=== PATIENT | female | born 1990 ===

== ENCOUNTER 2017-10-06 16:16 | Emergency (ER) | payer OTHER ==
[~2017-10-06] VITALS: Ht 162.6 cm; Wt 48.5 kg
[2017-10-06 16:51] LABS: ABSOLUTE BASOPHIL COUNT 0 /CUMM (0.0-0.2); ABSOLUTE EOSINOPHIL COUNT 0.1 /CUMM (0.0-0.7); ABSOLUTE GRANULOCYTE CT 12.3 /CUMM (1.4-6.5); ABSOLUTE LYMPH COUNT 2.1 /CUMM (1.2-3.4); ABSOLUTE MONOCYTE COUNT 0.8 /CUMM (0.10-0.60); BASOPHIL % 0.3 % (0.0-2.0); EOSINOPHIL % 0.6 % (0-5); GRANULOCYTE % 80.1 % (42.2-75.2); HEMATOCRIT 41.2 % (37-47); MEAN CORPUSCULAR HGB 31.5 PG (27.0-31.0); MEAN CORPUSCULAR HGB CONC 33.4 G/DL (33.0-37.0); MEAN CORPUSCULAR VOLUME 94.1 FL (81.0-99.0); PLATELET COUNT 272 /CUMM (130-400); RBC DISTRIBUTION WIDTH 12.4 % (11.5-14.5); RED BLOOD CELL CT 4.38 /CUMM (4.20-5.40); WHITE BLOOD CELL COUNT 15.4 /CUMM (4.8-10.8)
--- NOTE | 2017-10-06 18:12 | ED GENERAL ADULT ---
History of Present Illness General Chief Complaint: Nausea, Vomiting, Diarrhea Stated Complaint: SIB OBGYN 8 WEEKS PREG, HYPEREMISIS Source: patient Exam Limitations: no limitations Vital Signs & Intake/Output Vital Signs & Intake/Output Vital Signs Date Time Temp Pulse Resp B/P B/P Pulse O2 O2 Flow FiO2 Mean Ox Delivery Rate 10/06 2117 98.3 66 16 100/50 100 Room Air 10/06 1844 98.6 68 18 107/59 100 Room Air 10/06 1840 Room Air 10/06 1625 97.8 69 16 116/73 99 Room Air ED Intake and Output 10/07 0000 10/06 1200 Intake Total 2240 Output Total Balance 2240 Intake, IV 2000 Intake, Oral 240 Patient 107 lb Weight Weight Reported by Patient Measurement Method Allergies Coded Allergies: loracarbef (From LORABID) (HIVES 10/06/17) Triage Note: PT STATES SENT IN BY [facility] FOR HYPEREMISIS. PT IS 8 WEEKS Triage Nurses Notes Reviewed? yes Onset: Abrupt Duration: day(s): Timing: recent history : Yes Patient currently breastfeeds: No HPI: 10/06/17 7 PM 27-year-old female presents to the emergency department for multiple episodes of vomiting. She has a history of related hyper emesis. She is currently 7 weeks . She is a 2 para 1. She admits to scant vaginal spotting. No significant abdominal pain. IV fluids have been given and IV Zofran was given. The patient was signed out to Dr. Walden at 7 PM. She is pending ultrasound and reevaluation. (Dell Gamez DO) Reconcile Medications Ondansetron (Zofran Odt) 4 MG TAB.RAPDIS 1 TAB SL TID PRN nausea (Win TRUONG,Klever Waterman) Past History Travel History Traveled to [place] past 21 day No Medical History Any Pertinent Medical History? see below for history Respiratory: asthma Surgical History Surgical History: non-contributory Psychosocial History What is your primary language Albanian Tobacco Use: Never used ETOH Use: denies use Illicit Drug Use: denies illicit drug use Family History Hx Contributory? No (Dell Gamez DO) Review of Systems Review of Systems Constitutional: Denies: fever. EENTM: Denies: visual changes. Respiratory: Denies: sputum production. Cardiovascular: Denies: chest pain. GI: Denies: abdominal pain. Genitourinary: Reports: no symptoms. Musculoskeletal: Reports: no symptoms. Skin: Denies: rash. Neurological/Psychological: Reports: no symptoms. Hematologic/Endocrine: Reports: no symptoms. Immunologic/Allergic: Reports: no symptoms. (Dell Gamez DO) Physical Exam Physical Exam General Appearance: alert, awake, anxious, moderate distress Head: atraumatic, normal appearance Eyes: Bilateral: normal appearance, PERRL, EOMI. Ears, Nose, Throat: DRY MUCOUS MEMBRANES Neck: normal inspection, supple Respiratory: normal breath sounds, chest non-tender, no respiratory distress Cardiovascular: tachycardia Peripheral Pulses: 4+ radial (R), 4+ radial (L) Gastrointestinal: soft, non-tender Back: normal range of motion Extremities: no edema Neurologic/Psych: no motor/sensory deficits, awake, alert, oriented x 3 Skin: intact, normal color, warm/dry Core Measures ACS in differential dx? No CVA/TIA Diagnosis: No Sepsis Present: No Sepsis Focused Exam Completed? No (Dell Gamez DO) Progress Differential Diagnoses I considered the following diagnoses in my evaluation of the patient: [ Hyperemesis gravidarum, threatened , UTI, electrolyte derangement Plan of Care: Orders Procedure Date/time Status Add-on Test (ER Only) 10/06 194 Active CULTURE,URINE 10/06 164 Active URINALYSIS 10/06 1630 Complete HUMAN BETA HCG TITRE 10/06 1630 Complete COMPREHENSIVE METABOLIC PANEL 10/06 1630 Complete CBC WITHOUT DIFFERENTIAL 10/06 1630 Complete TYPE & SCREEN (NOT X-MATCH) 10/06 1630 Complete Laboratory Tests 10/06/17 1645: Urine Color YEL, Urine Clarity CLEAR, Urine pH 7.0, Ur Specific [place] 1.010, Urine Protein NEG, Urine Ketones 15 H, Urine Nitrite NEG, Urine Bilirubin NEG, Urine Urobilinogen 0.2, Ur Leukocyte Esterase NEG, Ur Microscopic SEDIMENT EXAMINED, Urine RBC 3-5, Urine WBC 1-3 H, Ur Epithelial Cells MANY H, Urine Bacteria FEW H, Urine Hemoglobin SMALL H, Urine Glucose NEG 10/06/17 1637: Anion Gap 14, Estimated GFR > 60, BUN/Creatinine Ratio 12.0, Glucose 86, Calcium 9.9, Total Bilirubin 1.3, AST 24, ALT 33, Alkaline Phosphatase 49, Total Protein 7.8, Albumin 5.1 H, Globulin 2.7, Albumin/Globulin Ratio 1.9, Beta HCG, Quant 434736.0, CBC w Diff NO MAN DIFF REQ, RBC 4.38, MCV 94.1, MCH 31.5 H, MCHC 33.4 , RDW 12.4, MPV 8.0, Gran % 80.1 H, Lymphocytes % 13.6 L, Monocytes % 5.4, Eosinophils % 0.6, Basophils % 0.3, Absolute Granulocytes 12.3 H, Absolute Lymphocytes 2.1, Absolute Monocytes 0.8 H, Absolute Eosinophils 0.1, Absolute Basophils 0 Microbiology 10/06 1645 URINE ROUT: Urine Culture - RECD Initial ED EKG: none (Dell Gamez DO) Departure Departure Disposition: STILL A PATIENT Condition: Stable Clinical Impression Primary Impression: related nausea and vomiting, antepartum Referrals: Charanjit Holbrook MD (PCP/Family) Departure Forms: Customer Survey General Discharge Information (Dell Gamez DO) Departure Prescriptions: Current Visit Scripts Ondansetron (Zofran Odt) 1 TAB SL TID PRN nausea #10 TAB Ref 1 Comments 10/06/17, 21:56.... pt feels well, tolerating po, feels comfortable going home. (Win TRUONG,Klever Waterman) Critical Care Note Critical Care Note Critical Care Time: non-applicable (Dell Gamez DO)
--- NOTE | 2017-10-06 21:11 | ULTRASOUND REPORT ---
EXAMINATION: ULTRASOUND FIRST TRIMESTER CLINICAL INFORMATION: Vaginal spotting. COMPARISON: None. TECHNIQUE: Transabdominal imaging of the pelvis was performed. FINDINGS: A normal gravid uterus is identified. A single living intrauterine gestation is identified with a crown-rump length of 14 mm corresponding to 8 weeks 1 days. This is concordant with the age by dates of 8 weeks 3 days. A normal heart rate of 160 beats per minute is identified. The right ovary is not identified. The left measures 5.4 x 1.4 x 2.8 cm There is no pelvic free fluid. IMPRESSION: Normal single living intrauterine gestation with an SANJAY of 2019.
[2017-10-06 21:18] VITALS: BP 100/50
[2017-10-06] MEDS ORDERED: ZOFRAN ODT4 M1 SL (21:55)
== END 2017-10-06 22:07 ==
LOC: ERH 16:16
PROVIDERS: Physician Assistant
DX: O21.9 Vomiting of pregnancy, unspecified (principal); R11.0 Nausea; Z3A.01 Less than 8 weeks gestation of pregnancy
CPT/HCPCS: 76817; 81001; 87086; 96361; 96374; J2405

== ENCOUNTER 2017-10-13 14:23 | Inpatient (IN) | payer OTHER ==
[~2017-10-13] VITALS: Ht 162.6 cm; Wt 48.1 kg
[~2017-10-13 14:23] MED LIST: ZOFRAN ODT4 M1 SL
[2017-10-13 16:22] LABS: ABSOLUTE BASOPHIL COUNT 0 /CUMM (0.0-0.2); ABSOLUTE EOSINOPHIL COUNT 0 /CUMM (0.0-0.7); ABSOLUTE LYMPH COUNT 1.9 /CUMM (1.2-3.4); BASOPHIL % 0.3 % (0.0-2.0); EOSINOPHIL % 0.3 % (0-5); GRANULOCYTE % 80.1 % (42.2-75.2); HEMATOCRIT 40.1 % (37-47); MEAN CORPUSCULAR HGB CONC 33.1 G/DL (33.0-37.0); MEAN CORPUSCULAR VOLUME 93.7 FL (81.0-99.0); MEAN PLATELET VOLUME 8.1 FL (7.4-10.4); PLATELET COUNT 281 /CUMM (130-400); RBC DISTRIBUTION WIDTH 12.6 % (11.5-14.5); RED BLOOD CELL CT 4.28 /CUMM (4.20-5.40)
--- NOTE | 2017-10-13 16:25 | ED GENERAL ADULT ---
See Addendum History of Present Illness General Chief Complaint: General Adult Stated Complaint: SIB DR HICKS FOR FLUIDS S/P BLD WRK/UA PER PT Source: patient Exam Limitations: no limitations Vital Signs & Intake/Output Vital Signs & Intake/Output ED Intake and Output 10/15 0000 08 1200 Intake Total 850 Output Total 400 Balance 450 Intake, IV 750 Intake, Oral 100 Output, Urine 400 Allergies Coded Allergies: loracarbef (From LORABID) (HIVES 10/13/17) Triage Note: PT SENT TO ED BY [facility] FOR IVF FOR DEHYDRATION. PT IS CURRENTLY 9 WEEKS . DENIES ABD PAIN. REPORTS CONSTIPATION, LAST BM 1 WEEK AGO. +VOMITING 20 TIMES A DAY PER PT. Triage Nurses Notes Reviewed? yes Onset: Gradual Duration: day(s): Timing: constant : Yes Patient currently breastfeeds: No HPI: 27-year-old female approximately 9 weeks gestation with a history of asthma sent in by her OB for IV fluids. Patient has been experiencing emesis with 15-20 episodes daily, has been unable to tolerate any by mouth intake. Reports that she had similar symptoms during her first requiring 2 admissions for intractable emesis. Also endorses intermittent lower abdominal cramping, no vaginal bleeding or discharge. Patient has been constipated over the past week, is only passing small amounts of hard stool, last normal bowel movement was a week ago, not currently on a bowel regimen. Denies fevers, diarrhea, dysuria, hematuria. (Tata PHILLIPS,Rochelle) Reconcile Medications Bisacodyl (Dulcolax) 5 MG TABLET.DR 2 TAB PO DAILY PRN CONSTIPATION . Doxylamine/Pyridoxine HCl (Ena Funez 10-10 MG Tablet) 10 MG-10 MG TABLET.DR 1 TAB PO DAILY NAUSEA (Reported) Ondansetron (Zofran Odt) 4 MG TAB.RAPDIS 1 TAB SL TID PRN nausea #48/Iron Cb&Glu/FA/B6 (Citranatal B-Calm Combo Pack) 20 MG IRON-1 MG-25 MG/25 MG TABLET.SEQ 1 TAB PO DAILY VITAMIN (Reported) Sertraline HCl 25 MG TABLET 1 TAB PO DAILY DEPRESSION (Reported) (Brock TRUONG,Yadiel) Past History Travel History Traveled to [place] past 21 day No Medical History Any Pertinent Medical History? see below for history Respiratory: asthma Surgical History Surgical History: non-contributory Psychosocial History What is your primary language Mexican Tobacco Use: Never used Family History Hx Contributory? No (Rochelle Mariscal) Review of Systems Review of Systems Constitutional: Reports: no symptoms. EENTM: Reports: no symptoms. Respiratory: Reports: no symptoms. Cardiovascular: Reports: no symptoms. GI: Reports: see HPI. Genitourinary: Reports: no symptoms. Musculoskeletal: Reports: no symptoms. Skin: Reports: no symptoms. Neurological/Psychological: Reports: no symptoms. Hematologic/Endocrine: Reports: no symptoms. Immunologic/Allergic: Reports: no symptoms. All Other Systems: Reviewed and Negative (Rochelle Mariscal) Physical Exam Physical Exam General Appearance: well developed/nourished, no apparent distress, alert, awake , comfortable Head: atraumatic, normal appearance Eyes: Bilateral: normal appearance. Neck: normal inspection Respiratory: normal breath sounds, lungs clear Cardiovascular: regular rate/rhythm Gastrointestinal: soft, non-tender Back: normal inspection Extremities: normal inspection Neurologic/Psych: awake, alert, oriented x 3, normal gait, normal mood/affect Skin: intact, normal color, warm/dry Core Measures ACS in differential dx? No CVA/TIA Diagnosis: No Sepsis Present: No Sepsis Focused Exam Completed? No (Rochelle Mariscal) Progress Differential Diagnoses I considered the following diagnoses in my evaluation of the patient: [Emesis and versus hyperemesis gravidarum versus dehydration versus ultralight derangement, low concern for spontaneous ] Plan of Care: Orders Procedure Date/time Status Regular Diet 10/14 B Active Patient Data 10/13 2228 Active ED Holding Orders 10/13 2200 Active Admit to inpatient 10/13 220 Active Vital Signs 10/13 220 Active Code Status 10/13 2200 Active Add-on Test (ER Only) 10/13 2147 Active Intake & Output 10/13 2037 Active MAGNESIUM 10/13 1610 Complete CULTURE,URINE 10/13 1512 Active URINALYSIS 10/13 1435 Complete HUMAN BETA HCG TITRE 10/13 1435 Complete COMPREHENSIVE METABOLIC PANEL 10/13 1435 Complete CBC WITHOUT DIFFERENTIAL 10/13 1435 Complete Laboratory Tests 10/13/17 1814: Urine Color YEL, Urine Clarity CLEAR, Urine pH 7.0, Ur Specific [place] 1.020, Urine Protein NEG, Urine Ketones TRACE H, Urine Nitrite NEG, Urine Bilirubin NEG, Urine Urobilinogen 0.2, Ur Leukocyte Esterase NEG, Ur Microscopic EXAM NOT REQUIRED, Urine Hemoglobin NEG, Urine Glucose NEG 10/13/17 1610: Anion Gap 11, Estimated GFR > 60, BUN/Creatinine Ratio 28.0 H, Glucose 96, Calcium 9.8, Magnesium 1.9, Total Bilirubin 1.4 H, AST 27, ALT 28, Alkaline Phosphatase 49, Total Protein 7.8, Albumin 5.0, Globulin 2.8, Albumin/Globulin Ratio 1.8, Beta HCG, Quant 167500.0, CBC w Diff NO MAN DIFF REQ, RBC 4.28, MCV 93.7, MCH 31.0, MCHC 33.1, RDW 12.6, MPV 8.1, Gran % 80.1 H, Lymphocytes % 12.7 L, Monocytes % 6.6, Eosinophils % 0.3, Basophils % 0.3, Absolute Granulocytes 12.0 H, Absolute Lymphocytes 1.9, Absolute Monocytes 1.0 H, Absolute Eosinophils 0, Absolute Basophils 0 Microbiology 10/13 1814 URINE ROUT: Urine Culture - RECD Labs show leukocytosis to 15, UA was not concerning for infection, patient has no other infectious symptoms on her review of systems, has had no recent coughing or sputum and therefore there is no indication for chest x-ray at this time. Leukocytosis is likely secondary to excessive emesis. Ultrasound shows a single live intrauterine with a heart rate in the 150s, and hCG rising appropriately. Patient has had intractable emesis after 2 doses of IV Zofran and IV Reglan, and has failed multiple by mouth challenges. It was recommended that she be admitted for intractable emesis, IV hydration, and further monitoring of her . At this time she is declining admission and states that she must go home to care for her daughter. Patient was extensively counseled on the risks of leaving AGAINST MEDICAL ADVICE including dehydration and miscarriage, and expresses understanding of the risk that this time. Discussed with EDMD who is aware that the patient is leaving AGAINST MEDICAL ADVICE. Patient will follow up with her [employer] [facility] tomorrow and was given strict return precautions. Discussed with Dr. Yip (OB) who is also aware that the patient has requested to decline admission at this time. Initial ED EKG: none (Rochelle Mariscal) Departure Departure Disposition: HOME OR SELF CARE Condition: Stable Clinical Impression Primary Impression: Emesis, persistent Secondary Impressions: First trimester Referrals: Yusef TRUONG,Charanjit (PCP/Family) Additional Instructions: At this time you have had intractable emesis despite multiple different nausea medications in the emergency department. It was recommended that you be admitted for continued IV nausea medications, IV hydration, and monitoring of your . You have expressed understanding that by declining admission you are at risk for dehydration, electrolyte derangement, and harm to including but not limited to miscarriage. Use still are requesting to leave AGAINST MEDICAL ADVICE after expressing understanding of the risks. Continue using the crutches and Zofran as needed for nausea and vomiting. Attempt to maintain adequate fluid intake. Follow-up with your [employer] provider tomorrow for reevaluation. Return to emergency department for any normal worsening symptoms. Departure Forms: Customer Survey General Discharge Information (Rochelle Mariscal) PA/VEHICLE CHECK IN CLERK Co-Sign Statement Statement: ED Attending supervision documentation- [X] I saw and evaluated the patient. I have also reviewed all the pertinent lab results and diagnostic results. I agree with the findings and the plan of care as documented in the PA's/VEHICLE CHECK IN CLERK's documentation. [X] I have reviewed the ED Record and agree with the PA's/VEHICLE CHECK IN CLERK's documentation. [] Additions or exceptions (if any) to the PAs/VEHICLE CHECK IN CLERK's note and plan are summarized below: [Patient to be admitted for intractable vomiting secondary to hyperemesis gravidarum. Patient has failed multiple anti-emetics during the emergency department.] (Lana TRUONG,Ricky Lilly) Departure Prescriptions: Current Visit Scripts Bisacodyl (Dulcolax) 2 TAB PO DAILY PRN CONSTIPATION #30 TAB . PA/VEHICLE CHECK IN CLERK Co-Sign Statement Statement: ED Attending supervision documentation- x I saw and evaluated the patient. I have also reviewed all the pertinent lab results and diagnostic results. I agree with the findings and the plan of care as documented in the PA's/VEHICLE CHECK IN CLERK's documentation. [] I have reviewed the ED Record and agree with the PA's/VEHICLE CHECK IN CLERK's documentation. [] Additions or exceptions (if any) to the PAs/VEHICLE CHECK IN CLERK's note and plan are summarized below: [] (Brock TRUONG,Yadiel) Critical Care Note Critical Care Note Critical Care Time: 30-74 min (Tata PHILLIPS,Rochelle)
--- NOTE | 2017-10-13 20:19 | ULTRASOUND REPORT ---
EXAMINATION: US , VIABILITY CLINICAL INFORMATION: Spontaneous . COMPARISON: None TECHNIQUE: Transabdominal imaging of the pelvis was performed with a curved transducer. FINDINGS: A single living intrauterine gestation is identified with a crown-rump length of 25 mm corresponding to 9 weeks 2 days. This is concordant with the age by LMP of 9 weeks 3 days. SANJAY is 05/15/2018. A heart rate of 153 bpm is identified. There is no pelvic free fluid. Both ovaries are of normal size and echogenicity. IMPRESSION: Single living intrauterine gestation.
[2017-10-13] MEDS ORDERED: DICLEGIS DR 101 EACH PO (21:05)
--- NOTE | 2017-10-13 22:47 | History & Physical ---
Kunal Hairston 10/13/17 2247: General Information and HPI MD Statement: I have seen and personally examined MARLENE PETERS and documented this H&P. The patient is a 27 year old F who presented with a patient stated chief complaint of [intractable vomiting >20x today]. Source of Information: patient, old records History of Present Illness: Ms. Peters is a 27yo 9wks F w/ PMH of Asthma was sent in by Dr. Abdul for IVF and intractable vomiting >20x today. She had similar symptoms during her first requiring 2 admissions, both lasting one day for intractable emesis which lasted till delivery. States intermittent lower abdominal cramping, no vaginal bleeding or discharge. patient stated that she was lastly seen in [facility] for hyperemesis. However per records she was in [place] [facility] 3 days ago for same complaints. She stated that medications had not much effect on her. States that she was not able to take PO solids since 24 hours ago, although is able to tolerate PO liquids. No fevers/chills/night sweats/blurred vision/seizures/chest pain/palpitations/urinary symptoms/diarrhea /LE edema. Allergies/Medications Allergies: Coded Allergies: loracarbef (From LORABID) (HIVES 10/13/17) Past History Travel History Traveled to [place] past 21 day No Medical History Respiratory: asthma Surgical History Surgical History: non-contributory Review of Systems Review of Systems Constitutional: Reports: see HPI. Exam & Diagnostic Data Last 24 Hrs of Vital Signs/I&O Vital Signs Date Time Temp Pulse Resp B/P B/P Pulse O2 O2 Flow FiO2 Mean Ox Delivery Rate 10/14 0034 99.6 69 22 112/64 69 10/13 2119 78 18 111/66 100 Room Air 10/13 2037 Room Air 10/13 1728 98.7 76 16 98/52 100 Room Air 10/13 1431 98.8 94 15 106/70 100 Room Air Room Air Intake & Output 10/14 0800 10/14 0000 10/13 1600 Intake Total Output Total Balance Patient 106 lb 106 lb Weight Weight Reported by Patient Reported by Patient Measurement Method Physical Exam General Appearance Alert, Oriented X3, Cooperative, No Acute Distress Skin No Rashes Cardiovascular Regular Rate, Normal S1, Normal S2 Lungs Clear to Auscultation, Normal Air Movement Abdomen Soft, Neurological Normal Speech, Strength at 5/5 X4 Ext, Sensation Intact, Cranial Nerves 3-12 NL, Reflexes 2+ Extremities No Edema, Normal Pulses Last 24 Hrs of Labs/[place]: Laboratory Tests 10/13/171813: Urine Color YEL, Urine Clarity CLEAR, Urine pH 7.0, Ur Specific [place] 1.020, Urine Protein NEG, Urine Ketones TRACE H, Urine Nitrite NEG, Urine Bilirubin NEG, Urine Urobilinogen 0.2, Ur Leukocyte Esterase NEG, Ur Microscopic EXAM NOT REQUIRED, Urine Hemoglobin NEG, Urine Glucose NEG 10/13/17 1610: Anion Gap 11, Estimated GFR > 60, BUN/Creatinine Ratio 28.0 H, Glucose 96, Calcium 9.8, Magnesium 1.9, Total Bilirubin 1.4 H, AST 27, ALT 28, Alkaline Phosphatase 49, Total Protein 7.8, Albumin 5.0, Globulin 2.8, Albumin/Globulin Ratio 1.8, Beta HCG, Quant 075976.0, CBC w Diff NO MAN DIFF REQ, RBC 4.28, MCV 93.7, MCH 31.0, MCHC 33.1, RDW 12.6, MPV 8.1, Gran % 80.1 H, Lymphocytes % 12.7 L, Monocytes % 6.6, Eosinophils % 0.3, Basophils % 0.3, Absolute Granulocytes 12.0 H, Absolute Lymphocytes 1.9, Absolute Monocytes 1.0 H, Absolute Eosinophils 0, Absolute Basophils 0 Microbiology 10/13 1813 URINE ROUT: Urine Culture - RECD Assessment/Plan Assessment: Ms. Peters is a 27F 9wks 2 days by US showing viable IUP with PMH asthma who comes in for intractable nausea/vomiting, >20 episodes of vomiting today. She is admitted for management of hyperemesis gravidarum. Does not show any signs of dehydration at this time. Problem list/Assessment/Hospital Course: #Hyperemesis Gravidarum #Leukocytosis, likely reactive #mild hyponatremia 2/2 dehydration/vomiting #PMH of asthma #Hyperemesis Gravidarum - US shows viable IUP -Was given reglan, zofran x2 and 2L NS in ED -Will give IVF 150cc/hr -Benadryl 25mg q4p and Tigan 200mg q6p for nausea. -If symptoms uncontrolled consider Zofran/Reglan/Phenergen as needed for nausea control -Encourage PO intake DVT PPx - ALPS, no sig risk factor Regular Diet IV access Full Code As Ranked By This Provider Problem List: 1. First trimester 2. Emesis, persistent Core Measures/Misc (11/24) Acute Coronary Syndrome ACS Diagnosis: No Congestive Heart Failure Congestive Heart Failure Diagnosis No Cerebrovascular Accident CVA/TIA Diagnosis: No VTE (View Protocol) VTE Risk Factors / No Mechanical VTE Prophylaxis d/t N/A MechProphylax Ordered No VTE Pharm Prophylaxis d/t LowRisk-No Interven Req'd Sepsis (View protocol) Sepsis Present: No If YES complete Sepsis Event Note If YES complete Sepsis Event Note Eileen Maldonado 10/13/17 2329: Core Measures/Misc (11/24) Sepsis (View protocol) If YES complete Sepsis Event Note If YES complete Sepsis Event Note Resident Review Statement Resident Statement: examined this patient, discussed with programming internship, agreed with programming internship, discussed with family, reviewed EMR data (avail), discussed with nursing , discussed with case mgmt, reviewed images, amended to note Other Findings: Ms. Peters is a 27yo F w/ PMH of Asthma was sent in by Dr. Abdul for IVF and intractable N/V x 20/day w/ constipatio, currently 9weeks . She had similar symptoms during her first requiring 2 admissions for intractable emesis which lasted till delivery.and also endorsed intermittent lower abdominal cramping, no vaginal bleeding or discharge. patient stated that she was lastly seen in [facility] for hyperemesis. She stated that medications had not much effect on her. She had like 5-20 episodes of N/V per day since 4.5 weeks, with some reflux feeling from time to time that she took OTC antacids without significant relieve. her appetite remained well though. She endorsed some constipation at baseline, and some dark urine as she was dehydrated, without any frothy urine appearance. Last time using Albuterol inhaler was a week ago. No recent asthma exacerbation. During our clinical interaction, patient denied recent travel/sick contacts, fever/lightheadedness/diaphoresis/night sweat/weight change/cough/SOB/Chest Pain /Palpitation/urinary abnormality, or other skin/musculoskeletal/neurological/ mood disorders, or dietary/appetite change. -Smoking: denied -Alcohol: denied -Rec Drugs: denied -Outpt physicians: Dr. Abdul as OBGYN On admission, Vitals: Stable afebrile, HR 94-70s, RR18, BP 111/66, 100% RA Physical exam unremarkable for any ab pain/CVA/cardiac/lung. -CBC: Leukocytosis 15.0, otherwise WNL -CMP: Na 136, otherwise WNL -UA/Microbiology: Trace ketonuria, otherwise WNL - U/S: A single living intrauterine gestation is identified with a crown- rump length of 25 mm corresponding to 9 weeks 2 days. This is concordant with the age by LMP of 9 weeks 3 days. SANJAY is 05/15/2018. A heart rate of 153 bpm is identified. -EKG: NSR w/o significant ST-T abnormalities, unchanged from previous. -Last Echo: No previous Echo -Interventions in ER: Reglan x 1, Zofran I x 2, NS Bolus 2L Problem list/Assessment/Hospital Course: #Hyperemesis Gravidium #Leukocytosis, likely reactive #mild hyponatremia 2/2 dehydration/vomiting #PMH of asthma - Admit to general medicine - Vitals per protocol, monitor I&O per protocol. - Continuous fluid hydration 150cc/hr. - Supportive tx w/ benadryl/tigan intercalated PRN for N/V - Pain per pathway DVT prophylaxis Only ALPS w/o significant risk factor for DVT Regular Diet IV Access: Peripheral IV Full Code Yared Draper MD 10/14/17 0623: General Information and HPI Allergies/Medications Home Med list Bisacodyl (Dulcolax) 5 MG TABLET.DR 2 TAB PO DAILY PRN CONSTIPATION . Doxylamine/Pyridoxine HCl (Ena Funez 10-10 MG Tablet) 10 MG-10 MG TABLET.DR 1 TAB PO DAILY NAUSEA (Reported) Ondansetron (Zofran Odt) 4 MG TAB.RAPDIS 1 TAB SL TID PRN nausea #48/Iron Cb&Glu/FA/B6 (Citranatal B-Calm Combo Pack) 20 MG IRON-1 MG-25 MG/25 MG TABLET.SEQ 1 TAB PO DAILY VITAMIN (Reported) Sertraline HCl 25 MG TABLET 1 TAB PO DAILY DEPRESSION (Reported) Core Measures/Misc (11/24) Sepsis (View protocol) If YES complete Sepsis Event Note If YES complete Sepsis Event Note Attending MD Review Statement Attending Statement Attending MD Statement: examined this patient, discuss w/resident/PA/PYROTECHNIC MIXER, agreed w/resident/PA/PYROTECHNIC MIXER, discussed with family ( at bedside) Attending Assessment/Plan: Patient is seen and examined independently by me. Care plan discussed with medical bill processor and resident. I agree with the physical exam findings and plan of care as outlined above with the following changes and additions. In summary, this is a 27 yo F history of asthma, now and 9 weeks gestation, presented with nausea and vomiting for about 1 month. Patient she has similar episodes for her first for which she was admitted twice to for hyperemesis gravidarum. Patient states she usually has vomiting anywhere from 5 to 20 times daily. She was in the ED 3 days ago with similar symptoms but improved after treatment and discharged. However, she has vomited 15-20 times and not able to tolerate any PO intake for about 24 hrs prior to presentation. She also has intermittent lower abdominal cramps and has constipation for few weeks. She denies vaginal discharge or bleeding. She got Reglan, Zofran and 2 L NS in the ED. She failed a trial of eating in the ED. In the ED, WBC 15.0. BUN/Cr 14/0.5. Na 136. K3.9. Mag 1.9. UA shows negative nitrite and esterase. US viability shows single living intrauterine gestation. On my exam, her abdomen is soft, bowel sound present, non tender, . Patient is admitted for hyperemesis gravidarum. IV hydration with NS 150 cc/hr and adjust as she tolerates her diet. Supportive management with Benadryl and Tigan for now. Her leukocytosis is possible stress related and will follow WBC for now. Signed: Yared Draper MD FACP
[2017-10-14 00:34] VITALS: BP 112/64
[2017-10-14 06:38] VITALS: BP 110/60
--- NOTE | 2017-10-14 07:17 | PN- Housestaff ---
Subjective Follow-up For: hyperemesis gravidarum Subjective: Patient seen and examined this morning. She states that she no longer feels nauseous. Her vitals are stable this morning. She does note that she has not had a bowel movement in 7-8 days ago but also notes that she has not been eating much. The patient has a long history of hyperemesis gravidarum with her last and even required IV infusions daily. The patient has been following up with her PRODUCT LINE MANAGER closely. Review of Systems Constitutional: Reports: no symptoms. Cardiovascular: Reports: no symptoms. Respiratory: Reports: no symptoms. Gastrointestinal: Reports: no symptoms. Musculoskeletal: Reports: no symptoms. Skin: Reports: no symptoms. Objective Last 24 Hrs of Vital Signs/I&O Vital Signs Date Time Temp Pulse Resp B/P B/P Pulse O2 O2 Flow FiO2 Mean Ox Delivery Rate 10/14 08 97 Room Air 10/14 0638 99.0 76 22 110/60 96 / 0034 99.6 69 22 112/64 100 / 2119 78 18 111/66 100 Room Air 10/13 203 Room Air 10/13 1728 98.7 76 16 98/52 100 Room Air 10/13 1431 98.8 94 15 106/70 100 Room Air Room Air Intake & Output 10/14 1600 10/14 0800 10/14 0000 Intake Total 850 Output Total 400 Balance 450 Intake, IV 750 Intake, Oral 100 Output, Urine 400 Patient 106 lb Weight Weight Reported by Patient Measurement Method Physical Exam General Appearance: Alert, Oriented X3, Cooperative, No Acute Distress Skin Temp/Moisture Exam: Warm/Dry HEENT: Atraumatic, PERRLA, EOMI Neck: Supple, No JVD, No thryomegaly Cardiovascular: Regular Rate, Normal S1, Normal S2, No Murmurs Lungs: Clear to Auscultation, Normal Air Movement Abdomen: Normal Bowel Sounds, Soft, No Tenderness Neurological: Normal Speech Current Medications: Current Medications Sig/Soha Start time Last Medication Dose Route Stop Time Status Admin Acetaminophen 650 MG Q6P PRN 10/14 0015 AC PO Diphenhydramine HCl 25 MG Q4P PRN 10/14 0100 AC 10/14 PO 0140 Docusate Sodium 100 MG BID 10/14 0900 AC 10/14 PO 0829 Metoclopramide HCl 0 .STK-MED ONE 10/13 2034 DC .ROUTE Metoclopramide HCl 10 MG ONCE ONE 10/13 2030 DC 08/ IV 10/13 Ondansetron HCl 0 .STK-MED ONE 10/13 1821 DC .ROUTE Ondansetron HCl 4 MG ONCE ONE 10/13 1800 DC 08/ IV 10/13 1801 181 Ondansetron HCl 0 .STK-MED ONE 10/13 1616 DC .ROUTE Ondansetron HCl 4 MG ONCE ONE 10/13 1515 DC 08/ IV 10/13 1516 1616 Polyethylene Glycol 17 GM DAILY PRN 10/14 0500 AC 10/14 PO 0829 Senna 187 MG AT BEDTIME PRN 10/14 0500 AC 10/14 PO 0829 Sodium Chloride 1,000 ML Q6H 10/14 0115 AC 10/14 IV 0806 Sodium Chloride 1,000 ML BOLUS ONE 10/13 1700 DC 08/ IV 10/13 1759 1741 Sodium Chloride 1,000 ML BOLUS ONE 10/13 1445 DC 08/ IV 10/13 1544 1616 Trimethobenzamide HCl 200 MG 4 TIMES/DAY PRN 10/14 0130 AC IM Last 24 Hrs of Lab/Beka Results Last 24 Hrs of Labs/Mics: Laboratory Tests 10/14/17 0640: CBC w Diff NO MAN DIFF REQ, RBC 3.42 L, MCV 93.2, MCH 31.5 H, MCHC 33.8, RDW 12.5, MPV 8.5, Gran % 77.6 H, Lymphocytes % 15.2 L, Monocytes % 6.4, Eosinophils % 0.5, Basophils % 0.3, Absolute Granulocytes 8.6 H, Absolute Lymphocytes 1.7, Absolute Monocytes 0.7 H, Absolute Eosinophils 0.1, Absolute Basophils 0 10/13/17 1814: Urine Color YEL, Urine Clarity CLEAR, Urine pH 7.0, Ur Specific [place] 1.020, Urine Protein NEG, Urine Ketones TRACE H, Urine Nitrite NEG, Urine Bilirubin NEG, Urine Urobilinogen 0.2, Ur Leukocyte Esterase NEG, Ur Microscopic EXAM NOT REQUIRED, Urine Hemoglobin NEG, Urine Glucose NEG 10/13/17 1610: Anion Gap 11, Estimated GFR > 60, BUN/Creatinine Ratio 28.0 H, Glucose 96, Calcium 9.8, Magnesium 1.9, Total Bilirubin 1.4 H, AST 27, ALT 28, Alkaline Phosphatase 49, Total Protein 7.8, Albumin 5.0, Globulin 2.8, Albumin/Globulin Ratio 1.8, Beta HCG, Quant 367772.0, CBC w Diff NO MAN DIFF REQ, RBC 4.28, MCV 93.7, MCH 31.0, MCHC 33.1, RDW 12.6, MPV 8.1, Gran % 80.1 H, Lymphocytes % 12.7 L, Monocytes % 6.6, Eosinophils % 0.3, Basophils % 0.3, Absolute Granulocytes 12.0 H, Absolute Lymphocytes 1.9, Absolute Monocytes 1.0 H, Absolute Eosinophils 0, Absolute Basophils 0 Microbiology 10/13 1814 URINE ROUT: Urine Culture - RES Assessment/Plan Assessment: Ms. Peters is a 27yo F w/ PMH of Asthma was sent in by Dr. Abdul for IVF and intractable N/V x 20/day w/ constipation, currently 9 weeks . She had similar symptoms during her first requiring 2 admissions for intractable emesis which lasted till delivery.and also endorsed intermittent lower abdominal cramping, no vaginal bleeding or discharge. patient stated that she was lastly seen in [facility] for hyperemesis. She stated that medications had not much effect on her. She had like 5-20 episodes of N/V per day since 4.5 weeks, with some reflux feeling from time to time that she took OTC antacids without significant relieve. her appetite remained well though. She endorsed some constipation at baseline, and some dark urine as she was dehydrated, without any frothy urine appearance. Last time using Albuterol inhaler was a week ago. No recent asthma exacerbation. During our clinical interaction, patient denied recent travel/sick contacts, fever/lightheadedness/diaphoresis/night sweat/weight change/cough/SOB/Chest Pain /Palpitation/urinary abnormality, or other skin/musculoskeletal/neurological/ mood disorders, or dietary/appetite change. -Smoking: denied -Alcohol: denied -Rec Drugs: denied -Outpt physicians: Dr. Abdul as OBGYN On admission, Vitals: Stable afebrile, HR 94-70s, RR18, BP 111/66, 100% RA Physical exam unremarkable for any ab pain/CVA/cardiac/lung. -CBC: Leukocytosis 15.0, otherwise WNL -CMP: Na 136, otherwise WNL -UA/Microbiology: Trace ketonuria, otherwise WNL - U/S: A single living intrauterine gestation is identified with a crown- rump length of 25 mm corresponding to 9 weeks 2 days. This is concordant with the age by LMP of 9 weeks 3 days. SANJAY is 05/15/2018. A heart rate of 153 bpm is identified. -EKG: NSR w/o significant ST-T abnormalities, unchanged from previous. -Last Echo: No previous Echo -Interventions in ER: Reglan x 1, Zofran I x 2, NS Bolus 2L Problem list/Assessment/Hospital Course: #Hyperemesis Gravidium #Leukocytosis, likely reactive #mild hyponatremia 2/2 dehydration/vomiting #PMH of asthma - Admit to general medicine - Vitals per protocol, monitor I&O per protocol. -Patient is tolerating food this morning we can stop her fluid hydration, electrolytes are stable - Supportive tx w/ benadryl/tigan PRN for N/V, will discharge her with recommendations to continue her at home Zofran and Diclegis -We will discharge her on Dulcolax 5 mg tablets 2 tablets daily for her constipation -She will follow-up with her PRODUCT LINE MANAGER -Continue her vitamin and her Zoloft 25 mg daily - Pain per pathway DVT prophylaxis Only ALPS w/o significant risk factor for DVT Regular Diet IV Access: Peripheral IV Full Code Problem List: 1. Hyperemesis gravidarum Pain Ratin Pain Location: na Pain Goal: Remain pain free Pain Plan: na Tomorrow's Labs & Rationales: na
[2017-10-14 08:03] LABS: ABSOLUTE EOSINOPHIL COUNT 0.1 /CUMM (0.0-0.7); ABSOLUTE MONOCYTE COUNT 0.7 /CUMM (0.10-0.60); GRANULOCYTE % 77.6 % (42.2-75.2)
[2017-10-14 08:19] LABS: ABSOLUTE BASOPHIL COUNT 0 /CUMM (0.0-0.2); ABSOLUTE GRANULOCYTE CT 8.6 /CUMM (1.4-6.5); ABSOLUTE LYMPH COUNT 1.7 /CUMM (1.2-3.4); BASOPHIL % 0.3 % (0.0-2.0); EOSINOPHIL % 0.5 % (0-5); MEAN CORPUSCULAR HGB 31.5 PG (27.0-31.0); MEAN CORPUSCULAR HGB CONC 33.8 G/DL (33.0-37.0); MEAN CORPUSCULAR VOLUME 93.2 FL (81.0-99.0); MEAN PLATELET VOLUME 8.5 FL (7.4-10.4); PLATELET COUNT 233 /CUMM (130-400); RBC DISTRIBUTION WIDTH 12.5 % (11.5-14.5); RED BLOOD CELL CT 3.42 /CUMM (4.20-5.40); WHITE BLOOD CELL COUNT 11.1 /CUMM (4.8-10.8)
[2017-10-14 08:20] LABS: HEMATOCRIT 31.9 % (37-47)
[2017-10-14] MEDS ORDERED: CITRANATAL B-C1 EACH PO (09:39)
[2017-10-14] MEDS ORDERED: SERTRALINE HCL25 MG PO (09:39)
[2017-10-14] MEDS ORDERED: DICLEGIS DR 101 EACH PO ×2 (09:40→09:41)
[2017-10-14] MEDS ORDERED: DULCOLAX5 M1 PO ×2 (09:47→10:21)
--- NOTE | 2017-10-14 09:48 | Patient Discharge Instructions ---
Discharge Instructions General Discharge Information You were seen/treated for: HYPEREMESIS GRAVIDARUM Special Instructions: PLEASE FOLLOW UP WITH YOUR OBGYN IN 1 WEEK Diet Continue normal diet: Yes Activity Full Activity/No Limits: Yes Acute Coronary Syndrome Inclusion Criteria At DC or during hospital stay patient has or had the following: ACS DIAGNOSIS No Discharge Core Measures Meds if any: Prescribed or Continued at Discharge Meds if any: NOT Prescribed or Continued at Discharge Congestive Heart Failure Inclusion Criteria At DC or during hospital stay patient has or had the following: CHF DIAGNOSIS No Discharge Core Measures Meds if any: Prescribed or Continued at Discharge Meds if any: NOT Prescribed or Continued at Discharge Cerebrovascular accident Inclusion Criteria At DC or during hospital stay patient has or had the following: CVA/TIA Diagnosis No Discharge Core Measures Meds if any: Prescribed or Continued at Discharge Meds if any: NOT Prescribed or Continued at Discharge Venous thromboembolism Inclusion Criteria VTE Diagnosis No VTE Type NONE VTE Confirmed by (Test) NONE Discharge Core Measures - Per Current guidelines, there needs to be overlap - treatment for the first 5 days of Warfarin therapy. - If discharged on Warfarin prior to 5 days of - overlap therapy, the patient will need to be - assessed for post discharge needs including - *Post discharge parental anticoagulation - *Warfarin and/or parental anticoagulation education - *Follow up date to check INR post discharge At least 5 days overlap therapy as Inpatient No Meds if any: Prescribed or Continued at Discharge Note: Overlap Therapy is Warfarin and Anticoagulant Meds if any: NOT Prescribed or Continued at Discharge
--- NOTE | 2017-10-14 10:49 | PN- Att Addend ---
Attending Addendum Attending Brief Note Patient seen and examined, overall doing much better. Nausea vomiting has resolved. Patient was able to eat and kept the food down this morning. Patient claims that with her first , she had a similar problem. That lasted all throughout . She was taking initially antiemetics orally but then later during the she ended up getting infusions and then had a pump. She follows up with her AIRCRAFT INSTRUMENT TESTER and has a plan. We offered to get AIRCRAFT INSTRUMENT TESTER consult here but patient refused and said that she wants to go home and does not want to stay. She claims that she already has an AIRCRAFT INSTRUMENT TESTER and has been through the same issue in the past and will likely go with the same plan this time also. She claims that this is not her regular hospital and she usually goes to [facility] therefore she does not want to see any AIRCRAFT INSTRUMENT TESTER doctor here. Vital Signs Date Time Temp Pulse Resp B/P B/P Pulse O2 O2 Flow FiO2 Mean Ox Delivery Rate 10/14 0800 97 Room Air 10/14 0638 99.0 76 22 110/60 96 10/14 0034 99.6 69 22 112/64 100 / 2119 78 18 111/66 100 Room Air 10/13 2037 Room Air 10/13 1728 98.7 76 16 98/52 100 Room Air 10/13 1431 98.8 94 15 106/70 100 Room Air Room Air on exam; aox3, nad. cv; s1, s2, rrr resp; clear abd; soft, nt, bs+ ext; no edema Laboratory Tests 10/14 10/13 0640 1814 Hematology CBC w Diff NO MAN DIFF REQ WBC (4.8 - 10.8 /CUMM) 11.1 H RBC (4.20 - 5.40 /CUMM) 3.42 L Hgb (12.0 - 16.0 G/DL) 10.8 L Hct (37 - 47 %) 31.9 L MCV (81.0 - 99.0 FL) 93.2 MCH (27.0 - 31.0 PG) 31.5 H MCHC (33.0 - 37.0 G/DL) 33.8 RDW (11.5 - 14.5 %) 12.5 Plt Count (130 - 400 /CUMM) 233 MPV (7.4 - 10.4 FL) 8.5 Gran % (42.2 - 75.2 %) 77.6 H Lymphocytes % (20.5 - 51.1 %) 15.2 L Monocytes % (1.7 - 9.3 %) 6.4 Eosinophils % (0 - 5 %) 0.5 Basophils % (0.0 - 2.0 %) 0.3 Absolute Granulocytes (1.4 - 6.5 /CUMM) 8.6 H Absolute Lymphocytes (1.2 - 3.4 /CUMM) 1.7 Absolute Monocytes (0.10 - 0.60 /CUMM) 0.7 H Absolute Eosinophils (0.0 - 0.7 /CUMM) 0.1 Absolute Basophils (0.0 - 0.2 /CUMM) 0 Urines Urine Color (YEL,AMB,STR) YEL Urine Clarity (CLEAR) CLEAR Urine pH (5.0 - 8.0) 7.0 Ur Specific [place] (1.001 - 1.035) 1.020 Urine Protein (NEG,<30 MG/DL) NEG Urine Ketones (NEG) TRACE H Urine Nitrite (NEG) NEG Urine Bilirubin (NEG) NEG Urine Urobilinogen (0.1 - 1.0 EU/dl) 0.2 Ur Leukocyte Esterase (NEG) NEG Ur Microscopic EXAM NOT REQUIRED Urine Hemoglobin (NEG) NEG Urine Glucose (N MG/DL) NEG 10/13 1610 Chemistry Sodium (137 - 145 mmol/L) 136 L Potassium (3.5 - 5.1 mmol/L) 3.9 Chloride (98 - 107 mmol/L) 100 Carbon Dioxide (22 - 30 mmol/L) 25 Anion Gap (5 - 16) 11 BUN (7 - 17 mg/dL) 14 Creatinine (0.5 - 1.0 mg/dL) 0.5 Estimated GFR (>60 ml/min) > 60 BUN/Creatinine Ratio (7 - 25 %) 28.0 H Glucose (65 - 99 mg/dL) 96 Calcium (8.4 - 10.2 mg/dL) 9.8 Magnesium (1.6 - 2.3 mg/dL) 1.9 Total Bilirubin (0.2 - 1.3 mg/dL) 1.4 H AST (14 - 36 U/L) 27 ALT (9 - 52 U/L) 28 Alkaline Phosphatase (<127 U/L) 49 Total Protein (6.3 - 8.2 g/dL) 7.8 Albumin (3.5 - 5.0 g/dL) 5.0 Globulin (1.9 - 4.2 gm/dL) 2.8 Albumin/Globulin Ratio (1.1 - 2.2 %) 1.8 Beta HCG, Quant (mIU/mL) 060941.0 Hematology CBC w Diff NO MAN DIFF REQ WBC (4.8 - 10.8 /CUMM) 15.0 H RBC (4.20 - 5.40 /CUMM) 4.28 Hgb (12.0 - 16.0 G/DL) 13.3 Hct (37 - 47 %) 40.1 MCV (81.0 - 99.0 FL) 93.7 MCH (27.0 - 31.0 PG) 31.0 MCHC (33.0 - 37.0 G/DL) 33.1 RDW (11.5 - 14.5 %) 12.6 Plt Count (130 - 400 /CUMM) 281 MPV (7.4 - 10.4 FL) 8.1 Gran % (42.2 - 75.2 %) 80.1 H Lymphocytes % (20.5 - 51.1 %) 12.7 L Monocytes % (1.7 - 9.3 %) 6.6 Eosinophils % (0 - 5 %) 0.3 Basophils % (0.0 - 2.0 %) 0.3 Absolute Granulocytes (1.4 - 6.5 /CUMM) 12.0 H Absolute Lymphocytes (1.2 - 3.4 /CUMM) 1.9 Absolute Monocytes (0.10 - 0.60 /CUMM) 1.0 H Absolute Eosinophils (0.0 - 0.7 /CUMM) 0 Absolute Basophils (0.0 - 0.2 /CUMM) 0 A/P; 27-year-old female with past history significant for asthma, depression who is 2 para 1 and currently 9 weeks admitted with hyperemesis gravidarum. Patient overall improved after IV hydration and antiemetics. Nausea vomiting has resolved. Patient was able to eat and kept the food down this morning. Patient claims that with her first , she had a similar problem. That lasted all throughout . She was taking initially antiemetics orally but then later during the she ended up getting infusions and then had a pump. She follows up with her AIRCRAFT INSTRUMENT TESTER and has a plan. We offered to get AIRCRAFT INSTRUMENT TESTER consult here but patient refused and said that she wants to go home and does not want to stay. She claims that she already has an AIRCRAFT INSTRUMENT TESTER and has been through the same issue in the past and will likely go with the same plan this time also. She claims that this is not her regular hospital and she usually goes to [facility] therefore she does not want to see any AIRCRAFT INSTRUMENT TESTER doctor here. Patient will be discharged home today. She will be continued on her home medications which include antiemetics, Zoloft as well as her vitamins. We also gave her some stool softeners due to her constipation and we recommend that she should continue to take stool softener during as needed. She should follow-up with her AIRCRAFT INSTRUMENT TESTER as an outpatient.
--- NOTE | 2017-10-14 11:20 | Discharge Summary ---
Visit Information Visit Dates Admission Date: 10/13/17 Discharge Date: 10/14/17 Hospital Course Course Attending Physician: Gus TRUONG,Lynnette Primary Care Physician: Yusef TRUONG,[facility] Course: Ms. Peters is a 27yo F w/ PMH of Asthma was sent in by Dr. Abdul for IVF and intractable N/V x 20/day w/ constipation, currently 9 weeks . She had similar symptoms during her first requiring 2 admissions for intractable emesis which lasted till delivery.and also endorsed intermittent lower abdominal cramping, no vaginal bleeding or discharge. patient stated that she was lastly seen in [facility] for hyperemesis. She stated that medications had not much effect on her. She had 5-20 episodes of N/V per day since 4.5 weeks, with some reflux feelings from time to time, she took OTC antacids without significant relief. her appetite remained good though. She endorsed some constipation at baseline, and some dark urine as she was dehydrated, without any frothy urine appearance. Her last time using Albuterol inhaler was a week ago. No recent asthma exacerbation During our clinical interaction, patient denied recent travel/sick contacts, fever/lightheadedness/ diaphoresis/night sweat/weight change/cough/SOB/Chest Pain/Palpitation/urinary abnormality, or other skin/musculoskeletal/neurological/mood disorders, or dietary/appetite change. On admission, Vitals: Stable afebrile, HR 94-70s, RR18, BP 111/66, 100% RA Physical exam unremarkable for any ab pain/CVA/cardiac/lung abnormalities. -CBC: Leukocytosis 15.0, otherwise WNL -CMP: Na 136, otherwise WNL -UA/Microbiology: Trace ketonuria, otherwise WNL - U/S: A single living intrauterine gestation is identified with a crown- rump length of 25 mm corresponding to 9 weeks 2 days. This is concordant with the age by LMP of 9 weeks 3 days. SANJAY is 05/15/2017. A heart rate of 153 bpm is identified. -EKG: NSR w/o significant ST-T abnormalities, unchanged from previous. -Last Echo: No previous Echo -Interventions in ER: Reglan x 1, Zofran I x 2, NS Bolus 2L Problem list/Assessment/Hospital Course: #Hyperemesis Gravidium #Leukocytosis, likely reactive #mild hyponatremia 2/2 dehydration/vomiting #PMH of asthma Admitted to general medicine, vitals per protocol, monitor I&O per protocol. Started on tigan and benadryl prn. Started on IVF. No electrolyte abnormalities. Patient noted that she had not had a bowel movement in 7 days, was given bowel regimen. Patient was feeling better by the morning. We consulted with OBGYN but the patient refused stating that she was eager to leave and would follow up with her own OBGYN. She was tolerating food in the morning so we stopped her fluid hydration, we discharged her with recommendations to continue her at home Zofran and Diclegis. We also discharged her on Dulcolax 5 mg tablets 2 tablets daily for her constipation and continued her vitamin and her Zoloft 25 mg daily. Allergies: Coded Allergies: loracarbef (From LORABID) (HIVES 10/13/17) Disposition Summary Disposition Principal Diagnosis: hyperemesis gravidarum Additional Diagnosis: na Discharge Disposition: home or self care Discharge Instructions General Discharge Information Code Status: Full Code Patient's Diet: regular Patient's Activity: as tolerated Follow-Up Instructions/Appts: follow up with obgyn in one week Medications at Discharge Discharge Medications: Continue taking these medications: Ondansetron (Zofran Odt) 4 MG TAB.RAPDIS 1 Tablet SUBLINGUAL THREE TIMES DAILY as needed for nausea Qty = 10 Comments: NOT GIVEN IN HOSPITAL Sertraline HCl (Sertraline HCl) 25 MG TABLET 1 Tablet ORAL DAILY Qty = 90 Comments: NOT GIVEN IN HOSPITAL #48/Iron Cb&Glu/FA/B6 (Citranatal B-Calm Combo Pack) 20 MG IRON-1 MG-25 MG/25 MG TABLET.SEQ 1 Tablet ORAL DAILY Qty = 90 Comments: NOT GIVEN IN HOSPTIAL Doxylamine/Pyridoxine HCl (Diclegis Dr 10-10 MG Tablet) 10 MG-10 MG TABLET.DR 1 Tablet ORAL DAILY Qty = 60 Comments: NOT GIVEN IN HOSPITAL Start taking the following new medications: Bisacodyl (Dulcolax) 5 MG TABLET.DR 2 Tablet ORAL DAILY as needed for CONSTIPATION Qty = 30 No Refills Instructions: . Comments: NOT GIVEN IN HOSPITAL Copies To: Mei Nicolas MD,Charanjit
== END 2017-10-14 11:08 | DRG 781 ==
LOC: ERH 14:23 → ERHI 22:01 → ENRESERV 22:54 → 2NB 23:27 → ENPENDDIS 10-14 10:02 → 2NB 10-14 11:08
PROVIDERS: Physician Assistant
DX: O21.1 Hyperemesis gravidarum with metabolic disturbance (principal); J45.909 Unspecified asthma, uncomplicated; Z3A.09 9 weeks gestation of pregnancy; K59.00 Constipation, unspecified; Z88.8 Allergy status to other drugs, medicaments and biological substances
CPT/HCPCS: 2NBP; 36592; 81003; 87086; J2405; J2765; J3250